=== PATIENT | male | born 1930 | race Caucasian/White ===

== ENCOUNTER 2017-09-06 11:38 | Inpatient (IN) | payer MEDICARE, OTHER ==
[2017-09-06] MEDS ORDERED: Temazepam 15 MG Cap PO PRN (14:23)
[2017-09-06] MEDS ORDERED: Sodium Chloride 0.9% 10 ML Syringe FLUSH PRN (14:23)
[2017-09-06] MEDS ORDERED: Acetaminophen 325 MG Tab PO PRN (14:23)
[2017-09-06] MEDS ORDERED: Calcium Carbonate 500 MG Tab.Chew PO PRN (14:36)
[2017-09-06] MEDS ORDERED: Magnesium Hydroxide 400 MG/5 ML Susp 30 ML Cup PO PRN (14:36)
[2017-09-06] MEDS: Furosemide 40 MG/4 ML VIAL IVPUSH SCH (16:10)
[2017-09-06] MEDS ORDERED: Warfarin 2.5 MG Tab PO SCH (16:15)
[2017-09-06] MEDS: Simvastatin 20 MG Tab PO SCH (19:56)
[2017-09-06] MEDS ORDERED: Warfarin 2.5 MG Tab PO ONE (20:00)
[2017-09-07] MEDS: Cholecalciferol (Vitamin D3) 1,000 Unit Tab PO SCH (08:23)
[2017-09-07] MEDS: Potassium Chloride 10 MEQ Tab.ER PO SCH (08:23)
[2017-09-07] MEDS: Furosemide 40 MG/4 ML VIAL IVPUSH SCH ×2 (08:23→16:09)
[2017-09-07] MEDS: Enalapril 5 MG Tab PO SCH (08:24)
[2017-09-07] MEDS: Diltiazem 120 MG Cap.CD PO SCH (08:24)
[2017-09-07] MEDS: Metoprolol Succinate 25 MG Tab.ER PO SCH (08:25)
--- NOTE | 2017-09-07 10:24 | PN ---
DATE: 09/07/2017 S: Damien Harding came in with left ventricular systolic congestive heart failure. He said he feels much better. He looks much better today. O: NECK: Supple. CHEST: Clear. CARDIAC: Sounds are good. EXTREMITIES: Minimal edema. ASSESSMENT: LEFT VENTRICULAR SYSTOLIC CONGESTIVE HEART FAILURE. P: Echo pending. LACY/LISETTE /[id number]
[2017-09-07] MEDS: Warfarin 5 MG Tab PO SCH (11:26)
[2017-09-07] MEDS ORDERED: Warfarin 2.5 MG Tab PO SCH (12:00)
[2017-09-07] MEDS: Simvastatin 20 MG Tab PO SCH (20:17)
[2017-09-08] MEDS: Furosemide 40 MG/4 ML VIAL IVPUSH SCH ×2 (07:53→16:58)
[2017-09-08] MEDS: Potassium Chloride 10 MEQ Tab.ER PO SCH (07:57)
[2017-09-08] MEDS: Diltiazem 120 MG Cap.CD PO SCH (07:57)
[2017-09-08] MEDS: Metoprolol Succinate 25 MG Tab.ER PO SCH (07:58)
[2017-09-08] MEDS: Cholecalciferol (Vitamin D3) 1,000 Unit Tab PO SCH (07:58)
[2017-09-08] MEDS: Enalapril 5 MG Tab PO SCH (07:59)
[2017-09-08] MEDS: Spironolactone 25 MG Tab PO SCH (09:40)
--- NOTE | 2017-09-08 11:36 | PN ---
DATE: 09/08/2017 S: Damien Harding is in with left ventricular systolic congestive heart failure and difficulty with hypotension. O: NECK: On examination, neck was supple. CHEST: Clear. CARDIAC: Sounds are good. EXTREMITIES: Trace pretibial edema. VITAL SIGNS: Weight is up. ASSESSMENT: CONGESTIVE HEART FAILURE. P: I will start him on Aldactone and echo is pending. LACY/LISETTE /[id number]
[2017-09-08] MEDS: Warfarin 5 MG Tab PO SCH (11:59)
[2017-09-08] MEDS: Simvastatin 20 MG Tab PO SCH (20:06)
[2017-09-09] MEDS: Metoprolol Succinate 25 MG Tab.ER PO SCH (08:16)
[2017-09-09] MEDS: Diltiazem 120 MG Cap.CD PO SCH (08:17)
[2017-09-09] MEDS: Potassium Chloride 10 MEQ Tab.ER PO SCH (08:17)
[2017-09-09] MEDS: Spironolactone 25 MG Tab PO SCH (08:17)
[2017-09-09] MEDS: Furosemide 40 MG/4 ML VIAL IVPUSH SCH (08:17)
[2017-09-09] MEDS: Enalapril 5 MG Tab PO SCH (08:17)
[2017-09-09] MEDS: Cholecalciferol (Vitamin D3) 1,000 Unit Tab PO SCH (08:17)
--- NOTE | 2017-09-09 10:15 | PCM.DCSUM1 ---
Discharge Summary - Hospital Course Free Text/Narrative:: Patient admitted on 09/06/2017 with acute on chronic systolic congestive heart failure. Pro-BNP at time of admission was 9149. Patient was short of breath at time of admission, but oxygen saturation was stable on room air. Patient was initially given 40 mg IV lasix BID without adequate diuresis. Aldactone was added yesterday. Patient's weight at admission was 199 lbs. Weight increased to 204 lbs on 09/08/17 and then 208 lbs today 09/09/17. Echo shows markedly reduced EF from previous echos. Ejection fraction on echo 09/06/17 was 20%. Previous echos show ejection fraction of 60% on 09/20/2014 and 55% on 2015. D-dimer was elevated. Pulmonary embolism was ruled out with Chest CTA. Chest CTA showed right pleural effusion and cardiomegaly. - Discharge Data Discharge Date: 09/09/17 Discharge Disposition: DC/Tfer to Acute Hospital 02 Condition: Good - Discharge Diagnosis/Problem(s) (1) CHF (congestive heart failure) SNOMED Code(s): 56509182 ICD Code: I50.9 - HEART FAILURE, UNSPECIFIED Status: Chronic Priority: High Current Visit: Yes Onset Date: ~08/29/16 Qualifiers: Congestive heart failure type: systolic Congestive heart failure chronicity : acute on chronic Qualified Code(s): I50.23 - Acute on chronic systolic ( congestive) heart failure - Patient Summary/Data Consults: Consultations 09/06/17 14:23 PT Evaluation and Treatment [CONS] Routine - Patient Instructions Diet: Heart Healthy Diet, Low Sodium Activity: As Tolerated, Elevate Extremity - Discharge Plan Home Medications: Home Meds Enalapril Maleate 10 mg PO DAILY 11/26/14 [History] Hydrochlorothiazide 25 mg PO DAILY 11/26/14 [History] Rosuvastatin [Crestor] 10 mg PO BEDTIME 11/26/14 [History] Warfarin [Coumadin] 5 mg PO [id number] 12/13/14 [History] Cholecalciferol (Vitamin D3) [Vitamin D3] 2,000 units PO DAILY 08/28/16 [History ] Furosemide [Furosemide] 20 mg PO DAILY 08/28/16 [History] Metoprolol Succinate 25 mg PO DAILY 08/28/16 [History] Diltiazem HCl [Diltiazem 24Hr ER] 240 mg PO DAILY 09/06/17 [History] Potassium Chloride [Klor-Con M20] 20 meq PO DAILY 09/06/17 [History] Warfarin [Coumadin] 2.5 mg PO BALDERAS 09/06/17 [History] - General Info Date of Service: 09/09/17 Admission Dx/Problem (Free Text: Congestive Heart Failure Functional Status: Reports: Pain Controlled, Tolerating Diet, Ambulating, Urinating - Review of Systems General: Reports: No Symptoms HEENT: Reports: No Symptoms Pulmonary: Reports: Shortness of Breath (on exertion) Cardiovascular: Reports: Dyspnea on Exertion Gastrointestinal: Reports: No Symptoms Genitourinary: Reports: No Symptoms Musculoskeletal: Reports: No Symptoms Skin: Reports: No Symptoms Neurological: Reports: Confusion Psychiatric: Reports: Confusion - Patient Data Vitals - Most Recent: Last Vital Signs Temp 97.5 F 09/09/17 07:52 Pulse 71 09/09/17 08:17 Resp 20 09/09/17 07:52 BP 127/59 L 09/09/17 08:17 Pulse Ox 98 09/09/17 07:52 Weight - Most Recent: 208 lb 1.6 oz I&O - Last 24 hours: Intake & Output 09/08/17 09/09/17 09/09/17 22:59 06:59 14:59 Intake Total 1300 1170 Output Total 800 Balance 500 1170 Lab Results - Last 24 hrs: Laboratory Results - last 24 hr 09/08/17 09/09/17 09/09/17 Range/Units 17:25 07:05 07:05 PT 20.9 H (9.7-12.3) SEC INR 1.90 H (0.92-1.18) D-Dimer, Quantitative 2.06 H (0.00-0.50) Sodium 138 (136-145) mEq/L Potassium 4.0 (3.5-5.0) mEq/L Chloride 101 (98-106) mEq/L Carbon Dioxide 30 (21-32) mmol/L BUN 33 H (7-18) mg/dL Creatinine 1.3 (0.7-1.3) mg/dL Est Cr Clr Drug Dosing 43.68 mL/min Estimated GFR (MDRD) 53 L (>=60) mL/min Glucose 103 H (75-99) mg/dL Calcium 9.4 (8.4-10.1) mg/dL Med Orders - Current: Current Medications Acetaminophen (Tylenol) 650 mg PO Q4H PRN PRN Reason: Pain (Mild 1-3)/fever Calcium Carbonate/Glycine (Tums) 500 mg PO QID PRN PRN Reason: Dyspepsia Cholecalciferol (Vitamin D3) 2,000 units PO DAILY [facility] Last Admin: 09/09/17 08:17 Dose: 2,000 units Diltiazem HCl (Cardizem Cd) 240 mg PO DAILY [facility] Last Admin: 09/09/17 08:17 Dose: 240 mg Enalapril Maleate (Vasotec) 10 mg PO DAILY [facility] Last Admin: 09/09/17 08:17 Dose: 10 mg Furosemide (Lasix) 40 mg IVPUSH BIDDIURETIC [facility] Last Admin: 09/09/17 08:17 Dose: 40 mg Magnesium Hydroxide (Milk Of Magnesia) 30 ml PO DAILY PRN PRN Reason: Constipation Metoprolol Succinate (Toprol Xl) 25 mg PO DAILY [facility] Last Admin: 09/09/17 08:16 Dose: 25 mg Potassium Chloride (Klor-Con 10) 20 meq PO DAILY [facility] Last Admin: 09/09/17 08:17 Dose: 20 meq Simvastatin (Zocor) 20 mg PO BEDTIME [facility] Last Admin: 09/08/17 20:06 Dose: 20 mg Sodium Chloride (Saline Flush) 10 ml FLUSH ASDIRECTED PRN PRN Reason: Keep Vein Open Spironolactone (Aldactone) 25 mg PO DAILY [facility] Last Admin: 09/09/17 08:17 Dose: 25 mg Temazepam (Restoril) 15 mg PO BEDTIME PRN PRN Reason: Sleep Warfarin Sodium (Coumadin) 2.5 mg PO Balderas [facility] Warfarin Sodium (Coumadin) 5 mg PO MoTuWeThFrSa [facility] Last Admin: 09/08/17 11:59 Dose: 5 mg Discontinued Medications Warfarin Sodium (Coumadin) 2.5 mg PO 1200 [facility] Warfarin Sodium (Coumadin) 2.5 mg PO ONETIME ONE Stop: 09/06/17 20:01 Last Admin: 09/06/17 19:55 Dose: Not Given - Exam General: Reports: Alert, Oriented, Cooperative, No Acute Distress HEENT: Reports: Pupils Equal, Pupils Reactive, EOMI, Mucous Membr. Moist/[place] Neck: Reports: Supple, Trachea Midline Lungs: Reports: Normal Respiratory Effort, Decreased Breath Sounds (bases) Cardiovascular: Reports: Regular Rate, Regular Rhythm GI/Abdominal Exam: Normal Bowel Sounds, Soft, Non-Tender, No Organomegaly, No Distention, No Abnormal Bruit, No Mass, Pelvis Stable Back Exam: Reports: Normal Inspection, Full Range of Motion Extremities: Pedal Edema (3+ to BLE) Skin: Reports: Warm, Dry, Intact Psy/Mental Status: Reports: Alert, Normal Affect, Normal Mood *Q Meaningful Use (DIS) - VTE *Q VTE Criteria *Q: - Stroke *Q Stroke Criteria *Q: - AMI *Q AMI Criteria *Q:
--- NOTE | 2017-09-09 11:01 | PN ---
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 His echo shows dramatic decrease in ejection fraction of 50% over a year ago to 20% now. We got him on IV diuretics. He continues to gain weight. Had a long discussion with the daughter about this and we will transfer him to [place] to see whether a dual chamber pacemaker will work. O: NECK: Supple. CHEST: Basically clear. He has a +1 pretibial edema. CARDIAC: Sounds were okay. ASSESSMENT: END-STAGE LEFT VENTRICULAR CONGESTIVE HEART FAILURE. P: Transfer. LACY/LISETTE /[id number]
[2017-09-09] MEDS: Warfarin 5 MG Tab PO SCH (12:24)
[2017-09-09 13:33] VITALS: BP 94/50
[2017-09-12] MEDS ORDERED: Warfarin 2.5 MG Tab PO SCH (12:00)
== END 2017-09-09 15:00 | DRG 293 ==
LOC: CC.MS 11:38 → CC.FCMC 11:38 → CC.MS 14:18 → UNDOADMIN 14:18 → CC.MS 14:24
PROVIDERS: ADMIT Nurse Practitioner Family; ATTEND General Practice
DX: I11.0 Hypertensive heart disease with heart failure (principal); I50.23 Acute on chronic systolic (congestive) heart failure; I48.91 Unspecified atrial fibrillation; I35.0 Nonrheumatic aortic (valve) stenosis; M19.90 Unspecified osteoarthritis, unspecified site; F32.9 Major depressive disorder, single episode, unspecified; E78.5 Hyperlipidemia, unspecified; Z87.891 Personal history of nicotine dependence; J30.9 Allergic rhinitis, unspecified; Z79.01 Long term (current) use of anticoagulants; N40.0 Benign prostatic hyperplasia without lower urinary tract symptoms; Z95.0 Presence of cardiac pacemaker; E55.9 Vitamin D deficiency, unspecified; Z79.899 Other long term (current) drug therapy
CPT/HCPCS: 36415; 71020; 71275; 80048; 80053; 83735; 83880; 85025; 85379; 85610; 86140; 93005; 93010; 93306; 97161-GP; A9270-GY; J1940; Q9967